=== PATIENT | male | born 1985 | race Caucasian/White ===

== ENCOUNTER → 2019-04-11 | Outpatient (CLI) | payer BC ==
[~2019-04-11] MED LIST: NO HOME MEDICATIONS
== END ==
LOC: COL.RAD 15:30
DX: R13.12 Dysphagia, oropharyngeal phase (principal)

== ENCOUNTER 2019-04-24 15:45 | Outpatient (RCR) | payer BC | END 2019-07-02 | disposition home or self-care (01) | LOC: WSST | DX: R13.12 Dysphagia, oropharyngeal phase (principal) ==

== ENCOUNTER → 2021-08-24 | Outpatient (CLI) | payer OTHER | LOC: COL.RAD 10:44 | DX: R13.12 Dysphagia, oropharyngeal phase (principal) ==